=== PATIENT | male | born 1955 | race Caucasian/White ===

== ENCOUNTER 2016-12-05 05:58 | Day surgery (SDC) ==
[2016-12-03 11:48] LABS: HEMATOCRIT 46.2 % (42.0-52.0); HEMOGLOBIN 15.6 g/dL (14.0-18.0); MCH 29.4 PG (27-31); MCHC 33.8 g/dL (33-37); MCV 87.2 FL (81-99); RBC 5.3 XMIL (4.7-6.1)
[2016-12-03 12:11] LABS: AGAP 11; BUN 21 mg/dL (8-22); CALCIUM 9.7 mg/dL (8.8-10.2); CHLORIDE 99 mmol/L (98-107); COSMO 281; POTASSIUM 4.1 mmol/L (3.5-5.1); SODIUM 139 mmol/L (136-145); TCO2 29 mmol/L (25-35)
[2016-12-03 12:15] LABS: INR 0.97; PROTIME 10.3 Seconds (9.2-11.7); PTT 25.3 Seconds (22.0-36.0)
--- NOTE | 2016-12-03 16:47 | EKG Report ---
Test Performed on : 12/03/2016 10:59:55 AM Test Reason : PAT Blood Pressure : / mmHG Vent. Rate : 070 BPM Atrial Rate : 070 BPM P-R Int : 178 ms QRS Dur : 088 ms QT Int : 398 ms P-R-T Axes : 048 024 101 degrees QTc Int : 429 ms Normal sinus rhythm. Cannot rule out Inferior infarct , age undetermined Nonspecific T wave abnormality Abnormal ECG No previous ECGs available Confirmed by Harry SIMMONS, Angelito ([id number]) on 12/04/2016 9:31:51 PM
--- NOTE | 2016-12-04 19:53 | HISTORY AND PHYSICAL ---
HISTORY OF PRESENT ILLNESS: A 61-year-old male who presented with irritative voiding with urgency, frequency and nocturia. He has tried Myrbetriq and failed it. He has tried VESIcare and failed that as well. He underwent cystoscopy on 11/27/2016 which revealed several papillary tumors with necrosis on the right lateral wall as well as erythematous patches on the posterior bladder wall. He presents for transurethral resection of the bladder tumor as well as bilateral retrograde pyelograms. PAST MEDICAL HISTORY: 1. BPH. 2. Urgency. 3. Hypertension. 4. Hyperlipidemia. 5. Arthritis. 6. GERD. 7. Insomnia. PAST SURGICAL HISTORY: Hip replacement, abdominal aortic aneurysm repair, carotid endarterectomy. HOME MEDICATIONS: Aspirin, atenolol, Avapro, Crestor, hydrochlorothiazide, meloxicam, multivitamin, omeprazole, Flomax and trazodone. ALLERGIES: No known drug allergies. SOCIAL HISTORY: Former smoker, former alcohol user, denies alcohol or drug use at the current time. FAMILY HISTORY: Negative for malignancies, positive for breast cancer. PHYSICAL EXAMINATION: GENERAL: No acute distress. HEENT: Normocephalic, atraumatic. CARDIOVASCULAR: Regular rhythm. PULMONARY: Bilateral breath sounds. ABDOMEN: Nontender, nondistended. GENITOURINARY: Normal external male genitalia. PERTINENT IMAGES: None. ASSESSMENT: This is a 61-year-old male with irritative voiding, microscopic hematuria, bladder tumors. We discussed at length risks transurethral resection of bladder tumor, bilateral retrograde pyelograms, postoperative installation of mitomycin-C. We reviewed risks, including but not limited to, bleeding, infection, injury to the bladder, injury to the ureter, injury to adjacent structures, inability to remove all of the tumor, and need for additional interventions. We also discussed the need for postoperative Hand catheter. We finally discussed systemic side effects of mitomycin-C. He voiced understanding and wishes to proceed. PLAN: Cystoscopy, bilateral retrograde pyelograms, transurethral resection of bladder tumor, postoperative mitomycin-C installation. [facility]
[2016-12-05] MEDS ORDERED: KEFZOL 2 GM/D5W 50 ML ONE (07:13)
[2016-12-05] MEDS ORDERED: LR 1,000 ML ONE ×2 (08:41→11:48)
[2016-12-05] MEDS ORDERED: STERILE WATER BLADDER ONE (08:45)
[2016-12-05] MEDS ORDERED: MITOMYCIN BLADDER ONE (08:45)
[2016-12-05] MEDS: DILAUDID ONE ×2 (09:23→09:28)
--- NOTE | 2016-12-05 09:24 | Diag Imaging Result Document ---
PROCEDURE NAME: RETROGRADES 2 OR 3 FILMS - 12/05/2016 RETROGRADE PYELOGRAM, 7 IMAGES: FINDINGS: There is retrograde opacification of both ureters. There are no obstructing lesions or fixed intraluminal filling defects demonstrated. IMPRESSION: No evidence of uroepithelial abnormality.
[2016-12-05] MEDS ORDERED: DITROPAN ONE (10:05)
[2016-12-05] MEDS: PYRIDIUM ONE ×5 (10:05→10:11)
[2016-12-05] MEDS ORDERED: PHENERGAN ONE (10:41)
[2016-12-05] MEDS ORDERED: LR 500 ML ONE (10:41)
[2016-12-05] MEDS ORDERED: FENTANYL ONE (11:22)
[2016-12-05] MEDS ORDERED: DIPRIVAN 1% ONE (11:22)
[2016-12-05] MEDS ORDERED: XYLOCAINE-MPF 2% ONE (11:48)
[2016-12-05] MEDS ORDERED: QUELICIN (DOSE) ONE (11:48)
[2016-12-05] MEDS ORDERED: NORCURON ONE (11:48)
[2016-12-05] MEDS ORDERED: ROBINUL ONE (11:48)
[2016-12-05] MEDS ORDERED: NEOSTIGMINE ONE (11:48)
[2016-12-05] MEDS ORDERED: DECADRON ONE (11:48)
[2016-12-05] MEDS ORDERED: ZOFRAN ONE (11:48)
[2016-12-05 12:12] VITALS: BP 155/95
--- NOTE | 2016-12-05 14:45 | OPERATIVE NOTE ---
PROCEDURE DATE: 12/05/2016 SURGEON: Aquiles Barron MD PREOPERATIVE DIAGNOSES: 1. Large bladder tumor (over 5 cm). 2. Microscopic hematuria. 3. Irritative voiding. POSTOPERATIVE DIAGNOSES: 1. Large bladder tumor (over 5 cm). 2. Microscopic hematuria. 3. Irritative voiding. 4. Meatal stenosis. 5. Distal stricture of the urethra. PRIMARY PROCEDURES: 1. Urethral dilation. 2. Cystoscopy with bilateral retrograde pyelograms. 3. Transurethral resection of large bladder tumor. 4. Postoperative mitomycin-C installation. INDICATIONS: A 61-year-old male, who presented with overactive bladder and irritative voiding. He had tried several medications, but had no response. He underwent office cystoscopy, at which point he was also noted to have microscopic hematuria. At that time, he was found to have a fairly large tumor covering his lateral wall and anterior wall as well as the dome. He presents for definitive intervention. FINDINGS: His meatal stenosis was narrowing would not accommodate 21-Guamanian rigid cystoscope or 25-Guamanian resectoscope. The urethra was dilated successfully to 32-Guamanian. Bilateral retrograde pyelograms were unremarkable. There was adequate hemostasis at the conclusion of the case. PROCEDURE IN DETAIL: After obtaining informed consent, patient was brought to the operating room. Perioperative antibiotics and general endotracheal anesthesia were administered. He was placed in lithotomy position, prepped and draped in sterile fashion. We attempted to introduce a 21-Guamanian rigid cystoscope, but could not do so due to significantly narrow meatus. Hence, I used Kristopher urethral sounds to dilate sequentially his urethra from 16-Guamanian up to 32-Guamanian. I was then able to introduce the 21-Guamanian cystoscope without difficulties. He did have bilobar prostatic hypertrophy. Examination of his bladder confirmed previously noted lesions, which included large papillary tumor, with areas of necrosis and calcifications along the anterior bladder wall, right lateral bladder wall, and involving the dome of the bladder. We began by identifying bilateral ureteral orifices and performed retrograde pyelograms. This was done by instilling 50% diluted Omnipaque dye. The left retrograde pyelogram revealed delicate caliceal system without evidence of hydroureteronephrosis or filling defects. Right-sided was identical without evidence of hydroureteronephrosis or filling defects. We then removed the cystoscope and introduced rigid resectoscope. Bipolar gyrus loop was then used to remove the tumor in its entirety. It was fairly difficult to access the tumor due to its location anterior bladder wall and the dome. Hence, I had to involve a poured concrete wall technician and press onto the abdominal wall in order to bring the anterior bladder wall in closer contact with the loop, but eventually tumor was resected, hemostasis was obtained. Tumor pieces were evacuated and sent off to Pathologist. Repeat examination revealed no evidence of active bleeding. A 16-Guamanian Hand catheter was introduced with return of light pink urine. He was extubated and taken to PACU for further recovery. ESTIMATED BLOOD LOSS: 1 mL. COMPLICATIONS: None. DISPOSITION: To PACU, where he is to receive mitomycin-C. He will get to go home with prescriptions for [place] 7.5 (15), Pyridium 200 (15), Cipro 250 (6). After patient was awaken in the recovery room, 40 mg of mitomycin-C were instilled in 20 cm of water per chemotherapy protocol. The catheter was clamped. Nursing staff was instructed to turn the patient over every 15 minutes. At the end of 60 minutes he is to have Hand catheter out and be discharged home.
== END 2016-12-05 12:15 | disposition home or self-care (01) ==
LOC: OPS 05:58
PROVIDERS: ATTEND Urology
DX: C67.4 Malignant neoplasm of posterior wall of bladder (principal); N35.9 Urethral stricture, unspecified; N40.0 Benign prostatic hyperplasia without lower urinary tract symptoms; I10 Essential (primary) hypertension; E78.5 Hyperlipidemia, unspecified; M19.90 Unspecified osteoarthritis, unspecified site; K21.9 Gastro-esophageal reflux disease without esophagitis
CPT/HCPCS: 74420; 80048; 85027; 85610; 85730; 88307; 88313; 93005; 93010; J0330; J0690; J1100; J1170; J2405; J2550; J3010; J7120; J9280; Q9966; J2710

== ENCOUNTER 2017-07-14 10:45 | Observation (INO) ==
[2017-07-07 15:04] LABS: HEMOGLOBIN 14.3 g/dL (14.0-18.0); MCH 29.7 PG (27-31); MCV 87.1 FL (81-99); MPV 12.2 FL (7.4-10.4); RBC 4.82 XMIL (4.7-6.1)
[2017-07-07 15:12] LABS: INR 0.96; PTT 23.3 Seconds (22.0-36.0)
[2017-07-07 15:21] LABS: AGAP 10; BUN 20 mg/dL (8-22); CALCIUM 9.2 mg/dL (8.8-10.2); CHLORIDE 100 mmol/L (98-107); COSMO 282; POTASSIUM 4.3 mmol/L (3.5-5.1); SODIUM 140 mmol/L (136-145); TCO2 30 mmol/L (25-35)
--- NOTE | 2017-07-07 15:35 | EKG Report ---
Test Performed on : 07/07/2017 1:56:56 PM Test Reason : pat Blood Pressure : / mmHG Vent. Rate : 056 BPM Atrial Rate : 056 BPM P-R Int : 172 ms QRS Dur : 090 ms QT Int : 428 ms P-R-T Axes : 052 042 072 degrees QTc Int : 413 ms Sinus bradycardia. Otherwise normal ECG When compared with ECG of 03-DEC-2016 10:59, Minimal criteria for Inferior infarct are no longer present Confirmed by Angelito Mcdonald MD ([id number]) on 07/09/2017 8:02:48 PM
[2017-07-14] MEDS ORDERED: GENTAMICIN 80 MG/NS 80 MG/50 ML IVPB ONE (11:17)
[2017-07-14] MEDS ORDERED: REGLAN ONE (11:17)
[2017-07-14] MEDS ORDERED: LR 1,000 ML ONE (11:17)
[2017-07-14] MEDS ORDERED: PEPCID ONE (11:17)
--- NOTE | 2017-07-14 12:01 | HISTORY AND PHYSICAL ---
HISTORY OF PRESENT ILLNESS: A 62-year-old male with long-standing history of BPH and bladder cancer. 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 He has had a long- standing BPH with symptoms of including urgency, frequency, nocturia, and hesitancy. He had tried Flomax and failed it. He had tried Myrbetriq and failed it as well. He tried VESIcare without success. He desires surgical intervention. His cystoscopy did confirm significant bilobar prostatic hypertrophy. His cystoscopy revealed significant bilobar prostatic hypertrophy as well as an erythematous area on the lateral bladder wall. PAST MEDICAL HISTORY: Bladder cancer, BPH, nocturia, hypertension, hyperlipidemia, GERD. PAST SURGICAL HISTORY: Hip replacement, AAA repair, and carotid endarterectomy. MEDICATIONS: Atenolol, Avapro, Crestor, hydrochlorothiazide, meloxicam, omeprazole, trazodone, aspirin 81 mg. ALLERGIES: No known drug allergies. FAMILY HISTORY: Negative for malignancies. SOCIAL HISTORY: Former smoker and alcohol user, denies illicit drugs. PHYSICAL EXAMINATION: GENERAL: No acute distress. HEENT: Normocephalic, atraumatic. CARDIOVASCULAR: Regular rhythm. PULMONARY: Bilateral breath sounds. ABDOMEN: Nontender, nondistended. : Normal external male genitalia. ASSESSMENT: A 62-year-old male with history of bladder cancer, who has significant benign prostatic hypertrophy. He continues to have symptoms despite medical therapy. He desires surgical intervention. We discussed risks of the procedure include not limited to bleeding, infection, injury to the bladder, injury to adjacent structures, small risk of urine incontinence, small risk of worsening erectile function, and need for additional interventions. He voiced understanding and wants to proceed. We also discussed that if he still has that erythematous area on his lateral bladder wall, we will do bladder biopsy. PLAN: Transurethral resection of the prostate, possible bladder biopsy and fulguration of bleeding. cc: Aquiles Barron MD
[2017-07-14] MEDS ORDERED: ROBINUL ONE ×2 (12:30→13:35)
[2017-07-14] MEDS ORDERED: DIPRIVAN 1% ONE (12:30)
[2017-07-14] MEDS ORDERED: XYLOCAINE-MPF 2% ONE (12:30)
[2017-07-14] MEDS ORDERED: ZOFRAN ONE (13:34)
[2017-07-14] MEDS ORDERED: TORADOL ONE (13:34)
[2017-07-14] MEDS ORDERED: DECADRON ONE (13:34)
[2017-07-14] MEDS ORDERED: FENTANYL ONE (13:46)
[2017-07-14] MEDS ORDERED: NS 1,000 ML ONE (15:14)
[2017-07-14] MEDS ORDERED: MORPHINE ONE (15:23)
[2017-07-14] MEDS ORDERED: PHENERGAN PO PRN (15:27)
[2017-07-14] MEDS ORDERED: MORPHINE IV PRN (15:27)
[2017-07-14] MEDS ORDERED: PHENERGAN PR PRN (15:27)
[2017-07-14] MEDS ORDERED: B & O 15A SUPP PR PRN (15:27)
[2017-07-14] MEDS ORDERED: PHENERGAN IV PRN (15:27)
[2017-07-14] MEDS ORDERED: TYLENOL PO PRN (15:27)
[2017-07-14] MEDS ORDERED: SODIUM CHLORIDE 0.9% INJ PRN (15:27)
[2017-07-14] MEDS ORDERED: DITROPAN PO PRN (15:27)
[2017-07-14] MEDS ORDERED: ZOFRAN IV PRN (15:27)
[2017-07-14] MEDS ORDERED: BENADRYL LIQUID PO PRN (15:27)
[2017-07-14] MEDS ORDERED: BENADRYL IV PRN (15:27)
[2017-07-14] MEDS ORDERED: LABETALOL IV PRN (15:27)
[2017-07-14] MEDS ORDERED: PHENERGAN ONE (15:39)
[2017-07-14] MEDS ORDERED: DESYREL PO PRN (16:54)
[2017-07-14] MEDS: NS 1,000 ML IV SCH ×2 (20:10→20:11)
[2017-07-14] MEDS ORDERED: CRESTOR PO SCH (21:00)
[2017-07-14] MEDS ORDERED: PERIDEX MT SCH (21:00)
[2017-07-14] MEDS ORDERED: COLACE PO SCH (21:00)
[2017-07-14] MEDS: KEFZOL 2 GM/D5W 2 GM/50 ML IVPB IV SCH (21:13)
[2017-07-14] MEDS: NORCO-7.5 PO PRN (21:13)
[2017-07-15] MEDS: NORCO-7.5 PO PRN ×3 (01:27→10:19)
[2017-07-15] MEDS: KEFZOL 2 GM/D5W 2 GM/50 ML IVPB IV SCH (03:11)
[2017-07-15 05:53] LABS: HEMATOCRIT 41.3 % (42.0-52.0); HEMOGLOBIN 13.9 g/dL (14.0-18.0); MCH 29.8 PG (27-31); MCHC 33.7 g/dL (33-37); MCV 88.6 FL (81-99); MPV 12.4 FL (7.4-10.4); RBC 4.66 XMIL (4.7-6.1)
[2017-07-15 05:58] LABS: AGAP 11; BUN 25 mg/dL (8-22); CALCIUM 8.8 mg/dL (8.8-10.2); CHLORIDE 100 mmol/L (98-107); COSMO 284; POTASSIUM 4.7 mmol/L (3.5-5.1); SODIUM 139 mmol/L (136-145); TCO2 28 mmol/L (25-35)
[2017-07-15] MEDS: NS 1,000 ML IV SCH ×2 (06:43→06:44)
[2017-07-15 07:36] VITALS: BP 141/61
--- NOTE | 2017-07-15 08:24 | PROGRESS NOTE ---
DATE: 07/15/2017 Mr. Burnett reports good night overnight. He denies pain. He voided a very small amount and reports mild dysuria. OBJECTIVE: Vital Signs: T 97.7 degrees, P 55, BP 141/80. His urine output was recorded of 750 mL. General: No acute distress. Abdomen: Nontender, nondistended. : Bladder is nontender to palpation. PERTINENT LABORATORY DATA: White count [id number], hematocrit 41, creatinine was 1. ASSESSMENT AND PLAN: A 62-year-old male, status post transurethral resection of the prostate who is doing well. He was counseled on postoperative care. We discussed stopping Flomax after a week. PLAN: 1. Discharge home once voids over 200 mL. 2. He will go home with prescriptions for [place] 5 and Bactrim DS. 3. I will plan on seeing him in 4 weeks. He will otherwise call with questions or concerns. cc: Aquiles Barron MD
[2017-07-15] MEDS ORDERED: FLOMAX PO SCH (09:00)
[2017-07-15] MEDS ORDERED: HYDROCHLOROTHIAZIDE PO SCH (09:00)
[2017-07-15] MEDS ORDERED: AVAPRO PO SCH (09:00)
[2017-07-15] MEDS ORDERED: BENADRYL PO SCH (09:00)
[2017-07-15] MEDS ORDERED: THERA M PLUS PO SCH (09:00)
[2017-07-15] MEDS ORDERED: VICON-C PO SCH (09:00)
[2017-07-15] MEDS ORDERED: TENORMIN PO SCH (09:00)
[2017-07-15] MEDS ORDERED: PRILOSEC PO SCH (09:00)
--- NOTE | 2017-07-21 08:50 | OPERATIVE NOTE ---
PROCEDURE DATE: 07/14/2017 SURGEON: Aquiles Barron MD. PREOPERATIVE DIAGNOSES: 1. Benign prostatic hypertrophy. 2. Nocturia. 3. Urgency. 4. Weak stream. POSTOPERATIVE DIAGNOSES: 1. Benign prostatic hypertrophy. 2. Nocturia. 3. Urgency. 4. Weak stream. 5. Distal urethral stricture approximately 16-Moldovan. INDICATIONS: A 62-year-old male with history of urothelial carcinoma of the bladder for which he has undergone TURBT. He has also had a very large prostate and has had several episodes of transient retention in the past. He has been on medical therapy but continues to have symptoms and desires intervention. FINDINGS: He had distal urethral stricture approximately 16-Moldovan in caliber through which a cystoscope would not pass. It was dilated up to 26-Moldovan with urethral sounds. Cystoscopy revealed persistent area of necrosis at the area of previous tumor resection, but no evidence of tumor recurrence on the lateral bladder wall. Adequate hemostasis at the conclusion of the case. PROCEDURE IN DETAIL: After obtaining informed consent, the patient was brought to the operating room. Perioperative antibiotics and laryngeal mask anesthesia were administered. He was placed in lithotomy position, prepped and draped sterile fashion. We attempted to introduce a 21-Moldovan rigid cystoscope but could not do so. He did have office cystoscopy in the past, but it was done with 16-Moldovan cystoscope which was tight but was not able to be advanced. Hence, we used female urethral dilators to dilate the stricture up to 26-Moldovan from 16-Moldovan sequentially. This allowed us to accommodate 21-Moldovan cystoscope easily. It was introduced and bilobar prostatic hypertrophy was once again confirmed. Cystoscopy revealed area of necrosis on the right lateral bladder wall consistent with tumor resection, but no evidence of new tumor growth. He had no evidence of excessive trabeculations, diverticula, or bladder stones noted. We then removed the cystoscope and introduced a 25-Moldovan rigid resectoscope. We began resecting the adenoma at 6 o'clock from the level bladder neck down to the level of the verumontanum to the depth of the capsule. This was then done in a clockwise and counterclockwise fashion circumferentially. Prostate chips were evacuated with the Ellik. Repeat examination revealed no evidence of chips remaining, no evidence of significant bleeding. The resectoscope was removed, and a 20-Moldovan 3-way Hand catheter was introduced with return of light pink urine without clots. He was connected to continuous bladder irrigation with normal saline. The patient was extubated and taken to PACU for further recovery. ESTIMATED BLOOD LOSS: 30 mL. COMPLICATIONS: None. DISPOSITION: To PACU and subsequently floor for observation with Hand catheter to continuous bladder irrigation. cc: Aquiles Barron MD
== END 2017-07-15 10:36 | disposition home or self-care (01) ==
LOC: OR 10:45 → 4N 10:45
PROVIDERS: ADMIT Urology; ATTEND Urology